=== PATIENT | female | born 1975 | race Caucasian/White ===

== ENCOUNTER 2016-08-25 23:24 | Emergency (ER) | payer OTHER ==
[~2016-08-25] VITALS: Ht 170.2 cm; Wt 93.6 kg
[2016-08-25 23:29] VITALS: BP 115/72; PULSE 90; RESP 16; O2SAT 100
--- NOTE | 2016-08-25 23:43 | ED.REPORT ---
HPI-Bite: Human/Animal Date of Service Aug 25, 2016 ED Provider: Homero Dexter DO Patient is a 41 year old who presents to the ED due to multiple dog bites that occurred at 1600. The patient reports that she was unable to come to the ED sooner because she has been at work. She states that this happened with her own dogs at home, who were fighting over a hamburger. Both of the dogs are up to date on their vaccinations and her last tetanus was in 2011. The patient reports that she is safe at home. Nursing Notes Stated Complaint: DOG BITE Chief Complaint: Extremity Trauma Nursing Notes Reviewed: Yes Allergies: Coded Allergies: No Known Allergies (Unverified , 08/25/16) General Time Seen by MD: 23:42 Chief Complaint Dog bite Hx Obtained From: Patient Arrived By: Walk-in Onset Occurred: 5 - 8 hours ago Context of Onset: Occurred at home, Vaccinations up to date Symptom Duration: Since onset Location: : Arm right: Forearm left: Thigh left Quality: Painful Context: Immunizations Immunizations: Tetanus w/in 5 - 10 yrs Recent Healthcare: No recent doctor visit, No recent hospitalization Similar Sx Previous: Yes Past Medical History Past Medical History none reported Smoking History Unknown if Ever Smoker Social History Other Social History: Lives with children Ambulatory Status Independent Review of Systems Review of Systems Note: multiple puncture wounds to left forearm, right arm and left thigh Constitutional: Denies: Chills Skin: Denies Itching, Denies Rash Complete sys rev & neg: except as marked. Respiratory: Denies: Non-productive cough, Shortness of breath Neurologic: Denies: Numbness, Problem walking, Weakness Physical Exam Vital Signs Vital Signs (First) Date Time Temp Pulse Resp B/P Pulse Ox O2 Delivery O2 Flow Rate FiO2 08/25/16 23:29 37.4 90 16 115/72 100 Room Air Initial VS: Reviewed General/Constitutional: Awake, Alert, No acute distress Skin: No rash, Warm, Dry multiple puncture wounds Head / Eyes: Atraumatic, Normocephalic, PERRL, EOMI Respiratory / Chest: Atraumatic, No respiratory distress Upper Extremity / MS: Neurologic intact, Vascular intact Lower Extremity / Pelvis / MS: Neurologic intact, Vascular intact Neurologic: Oriented X3, Speech NL, No motor deficits, No sensory deficits Psychiatric: Affect NL, Mood NL Re-Eval/Medical Decision Med Decision/Clinical Course Multiple puncture type bite wounds. All of them less than a centimeter. None of them gaping. None of them requiring suturing. Wounds were cleaned and irrigated and dressed with Steri-Strips and antibiotic ointment. She will be placed on Augmentin prophylaxis. [place] for pain. Dogs will be watch for signs of rabies. Return if any problems. Re-Evaluation/Progress : Time of Eval: 23:49 Re-Evaluation/Progress Note: Discussed plan for wound care and discharge. Patient understands and agrees to plan. All questions were addressed. Counseled Regarding: Diagnosis, Need for follow-up, When/why to return to ED Discharge & Departure Impression: Primary Impression: Dog bite of multiple sites Disposition: Home Discharge Condition All VS Reviewed: Yes Condition: Stable Patient Instructions: Acute Wound Care (ED) Additional Instructions: These wounds should heal without needing to be sutured. Take the antibiotic, Augmentin 2x for 7 days. Keep the wound covered with antibiotic ointment. Keep it clean and dry. You can take 1-2 [place] every 6 hours as needed for pain. Do not drink alcohol or drive while taking the pain medication. Do not combine with Acetaminophen. Follow up with your primary care physician next week. Return to the emergency department if you develop any new or concerning symptoms including signs of infection; increasing pain, spreading redness or pus drainage. Referrals: Cristobal Ortiz MD (PCP) Che Attestation Portions of this note were transcribed by Sarahy Sorensen. I, Dr. Dexter personally performed the history, physical exam and medical decision-making; I reviewed and confirmed the accuracy of the information in the transcribed note. Signed by: Che Wilson, 08/25/16 and 0308 copies to: Cristobal Ortiz MD, Todd P DO Aug 25, 2016 23:43 Carline Sorensen Aug 25, 2016 23:55
[2016-08-25] MEDS ORDERED: Amoxicillin-Clav 875-125 mg Tablet PO ONE (23:50)
[2016-08-25] MEDS ORDERED: TdaP Vaccine 0.5 mL Inj IM ONE (23:50)
[2016-08-25] MEDS ORDERED: _HYDROcodone/APAP 5-325 mg Tablet PO PRN (23:50)
== END 2016-08-26 00:43 | disposition home or self-care (01) ==
LOC: SED 23:24
DX: S51.851A Open bite of right forearm, initial encounter (principal); S51.852A Open bite of left forearm, initial encounter; S71.152A Open bite, left thigh, initial encounter; W54.0XXA Bitten by dog, initial encounter; Y93.89 Activity, other specified; Y92.009 Unspecified place in unspecified non-institutional (private) residence as the place of occurrence of the external cause; Y99.8 Other external cause status; Z23 Encounter for immunization